=== PATIENT | female | born 1990 | race Caucasian/White ===

== ENCOUNTER 2023-10-18 11:50 | Emergency (ER) | payer OTHER ==
[2023-10-18 12:05] VITALS: BP 134/86; PULSE 80; RESP 17; TEMP 98.5; BMI 36.6
[2023-10-18 13:05] LABS: BASO % 1.1 % (0-2.0); EOS % 2.3 % (0-4.5); HEMATOCRIT 43.9 % (32.4-45.2); HEMOGLOBIN 14.5 GM/dL (10.7-15.3); LYMPH % 20.5 % (8-40); MCH 30.1 pg (25.7-33.7); MCHC 33.1 g/dl (32.0-36.0); MEAN CELL VOLUME 91.1 fl (80-96); MONO % 5.5 % (3.8-10.2); NEUT % 70.6 % (42.8-82.8); PLATELET COUNT 450 10^3/uL (134-434); RBC 4.82 M/mm3 (3.60-5.2); RDW 12.5 % (11.6-15.6); WHITE BLOOD COUNT 11.4 K/mm3 (4.0-10.0)
[2023-10-18 13:07] LABS: EPI CELLS >36 /uL (0-25.1); HYALINE CASTS 0 /uL (0-3.1); URINE APPEARANCE CLOUDY; URINE BACTERIA 417 /uL (0-1359); URINE BILIRUBIN NEGATIVE (NEGATIVE); URINE COLOR ORANGE; URINE GLUCOSE (UA) NEGATIVE (NEGATIVE); URINE KETONE NEGATIVE (NEGATIVE); URINE LEUK ESTERASE 1+ (NEGATIVE); URINE NITRITE NEGATIVE (NEGATIVE); URINE PROTEIN 1+ (NEGATIVE); URINE RBC 2223 /uL (0-23.9); URINE UROBILINOGEN 0.2 mg/dL (0.2-1.0); URINE WBC 124 /uL (0-25.8)
[2023-10-18 13:29] LABS: CHLORIDE 108 mmol/L (98-107); POTASSIUM 4.6 mmol/L (3.5-5.1); SODIUM 138 mmol/L (136-145)
[2023-10-18 13:33] LABS: ALBUMIN 3.5 g/dl (3.4-5.0); ANION GAP 4 mmol/L (4-13); CO2 26 mmol/L (21-32); GLUCOSE,RANDOM 104 mg/dL (74-106)
[2023-10-18 13:36] LABS: CREATININE 0.6 mg/dL (0.55-1.3); SGOT/AST 28 U/L (15-37); SGPT/ALT 43 U/L (13-61)
[2023-10-18 13:38] LABS: BILIRUBIN,TOTAL 0.5 mg/dL (0.2-1); TOT PROT 7.4 g/dl (6.4-8.2)
[2023-10-18 13:39] LABS: ALK PHOS 56 U/L (45-117)
== END 2023-10-18 14:41 | disposition home or self-care (01) ==
LOC: JER 11:50
DX: O20.9 Hemorrhage in early pregnancy, unspecified (principal); O26.899 Other specified pregnancy related conditions, unspecified trimester; R10.30 Lower abdominal pain, unspecified
CPT/HCPCS: 36415; 80053; 81003; 84702; 85025; 86850; 86900; 86901; 87086; 99283-25

== ENCOUNTER 2025-01-06 01:49 | Emergency (ER) | payer OTHER ==
[2025-01-06 01:56] VITALS: BP 126/84; PULSE 84; RESP 17; TEMP 97.8; BMI 38.7
== END 2025-01-06 02:12 | disposition left against medical advice (07) ==
LOC: JER 01:49
DX: Z53.21 Procedure and treatment not carried out due to patient leaving prior to being seen by health care provider (principal)
CPT/HCPCS: 99281-25

== ENCOUNTER 2025-01-10 10:54 | Inpatient (IN) | payer OTHER ==
[2025-01-10 12:10] LABS: ABSOLUTE IMMATURE GRANULOCYTES 0.08 x10^3/uL (0.0-0.031); BASOPHILS # 0.06 x10^3/uL (0.01-0.08); EOSINOPHIL % 6.9 % (0.7-5.8); EOSINOPHILS # 1.14 x10^3/uL (0.04-0.36); HEMATOCRIT 45.7 % (34.1-44.9); HEMOGLOBIN 14.9 g/dL (11.2-15.7); MCHC 32.6 g/dl (32.2-35.5); MEAN PLT VOLUME 9.4 fl (9.4-12.3); MONOCYTE # 1.06 x10^3/uL (0.24-0.86); MONOCYTE % 6.4 % (4.7-12.5); PLATELET COUNT 478 x10^3/uL (182-369); RDW 12.2 % (12.1-16.8)
[2025-01-10] MEDS ORDERED: KETOROLAC TROMETHAMINE 15 MG/ML VIAL ONE ×2 (12:17→14:58)
[2025-01-10] MEDS: KETOROLAC TROMETHAMINE 15 MG/ML VIAL IVPUSH ONE (12:26)
[2025-01-10] MEDS: SODIUM CHLORIDE 0.9% 500 ML INFUS.BAG IV ONE (12:26)
[2025-01-10 12:36] LABS: POTASSIUM 3.6 mmol/L (3.5-5.1)
[2025-01-10 12:38] LABS: ALBUMIN 3.8 g/dl (3.4-5.0); BLOOD UREA NITROGEN 7.3 mg/dL (7-18); CALCIUM 9.5 mg/dL (8.5-10.1)
[2025-01-10 12:42] LABS: CREATININE 0.9 mg/dL (0.55-1.3)
[2025-01-10 12:43] LABS: BILIRUBIN,TOTAL 0.9 mg/dL (0.2-1); TOT PROT 7.8 g/dl (6.4-8.2)
[2025-01-10] MEDS: VANCOMYCIN HCL 1,500 MG in DEXTROSE 5%-WATER - 500 ML IVPB ONE (13:19)
[2025-01-10] MEDS: VANCOMYCIN HCL IN 5 % DEXTROSE 1,500 MG/300 ML BAG IVPB ONE (13:19)
[2025-01-10 13:24] LABS: HIV INTERPRETATION NEGATIVE (NEGATIVE)
[2025-01-10 13:25] LABS: HCV DIAGNOSTIC IN-HOUSE W/RFLX NON-REACTIVE (NONREACTIVE)
[2025-01-10] MEDS: KETOROLAC TROMETHAMINE 15 MG/ML VIAL IVPUSH PRN (15:04)
[2025-01-10 16:24] VITALS: BMI 33.3
[2025-01-11] MEDS: VANCOMYCIN 1 GM PREMIX (F) 1,000 MG/200 ML BAG IVPB SCH (00:08)
[2025-01-11] MEDS: SODIUM CHLORIDE 0.9% 500 ML INFUS.BAG IV ONE (06:08)
[2025-01-11 07:22] LABS: HEMATOCRIT 37.6 % (34.1-44.9); HEMOGLOBIN 12.3 g/dL (11.2-15.7); MCHC 32.7 g/dl (32.2-35.5); MEAN CELL VOLUME 93.3 fl (79.4-94.8); MEAN PLT VOLUME 9.5 fl (9.4-12.3); PLATELET COUNT 379 x10^3/uL (182-369); RDW 12.2 % (12.1-16.8)
[2025-01-11 07:42] LABS: POTASSIUM 3.8 mmol/L (3.5-5.1)
[2025-01-11 07:57] LABS: BLOOD UREA NITROGEN 8.5 mg/dL (7-18); CALCIUM 8.3 mg/dL (8.5-10.1); MAGNESIUM 1.8 mg/dL (1.8-2.4)
[2025-01-11 08:00] LABS: CREATININE 0.6 mg/dL (0.55-1.3)
[2025-01-11 08:01] LABS: PHOSPHOROUS 3.1 mg/dL (2.5-4.9)
[2025-01-11] MEDS ORDERED: ACETAMINOPHEN 325 MG TABLET (FP) PO PRN (10:51)
[2025-01-11] MEDS: ENOXAPARIN NA (PORCINE) 40 MG/0.4 ML DISP.SYRIN SQ SCH (11:24)
[2025-01-11] MEDS: VANCOMYCIN 1 GM PREMIX (F) 1 GM/200 ML BAG IVPB SCH (14:16)
[2025-01-12] MEDS: ALBUTEROL SO4 2.5/IPRATROPIUM 0.5 INH SOL 3 ML VIAL.NEB. NEB ONE (04:00)
[2025-01-12 08:08] LABS: HEMATOCRIT 39.7 % (34.1-44.9); HEMOGLOBIN 12.9 g/dL (11.2-15.7); MCHC 32.5 g/dl (32.2-35.5); MEAN PLT VOLUME 9.5 fl (9.4-12.3); PLATELET COUNT 392 x10^3/uL (182-369); RDW 12.3 % (12.1-16.8)
[2025-01-12 08:16] LABS: INR 1.19 (0.83-1.09); PROTHROMBIN TIME (PATIENT) 13.1 SEC (9.7-13.0)
[2025-01-12 08:28] LABS: POTASSIUM 3.8 mmol/L (3.5-5.1)
[2025-01-12 08:30] LABS: CALCIUM 8.5 mg/dL (8.5-10.1)
[2025-01-12 08:31] LABS: BLOOD UREA NITROGEN 6.3 mg/dL (7-18)
[2025-01-12 08:34] LABS: CREATININE 0.7 mg/dL (0.55-1.3)
[2025-01-12 08:36] LABS: BILIRUBIN,TOTAL 0.4 mg/dL (0.2-1); TOT PROT 6.2 g/dl (6.4-8.2)
[2025-01-12] MEDS: diphenhydrAMINE HCL 25 MG CAPSULE (FP) PO ONE (21:38)
[2025-01-13 07:41] LABS: ABSOLUTE IMMATURE GRANULOCYTES 0.06 x10^3/uL (0.0-0.031); BASOPHILS # 0.09 x10^3/uL (0.01-0.08); EOSINOPHILS # 1.59 x10^3/uL (0.04-0.36); HEMATOCRIT 41.9 % (34.1-44.9); HEMOGLOBIN 13.9 g/dL (11.2-15.7); MCHC 33.2 g/dl (32.2-35.5); MEAN CELL VOLUME 91.9 fl (79.4-94.8); MEAN PLT VOLUME 9.8 fl (9.4-12.3); MONOCYTE # 0.99 x10^3/uL (0.24-0.86); MONOCYTE % 8.1 % (4.7-12.5); PLATELET COUNT 460 x10^3/uL (182-369); RDW 12.2 % (12.1-16.8)
[2025-01-13 08:13] LABS: POTASSIUM 3.9 mmol/L (3.5-5.1)
[2025-01-13 08:32] LABS: ALBUMIN 3.1 g/dl (3.4-5.0); BLOOD UREA NITROGEN 7.1 mg/dL (7-18); CALCIUM 8.5 mg/dL (8.5-10.1); MAGNESIUM 1.7 mg/dL (1.8-2.4)
[2025-01-13 08:36] LABS: CREATININE 0.6 mg/dL (0.55-1.3)
[2025-01-13 08:40] LABS: TOT PROT 6.2 g/dl (6.4-8.2)
[2025-01-13] MEDS: VANCOMYCIN 1,000 MG in DEXTROSE 5%-WATER - 250 ML IVPB SCH (08:55)
[2025-01-14 08:10] LABS: HEMATOCRIT 41.5 % (34.1-44.9); HEMOGLOBIN 13.6 g/dL (11.2-15.7); MCHC 32.8 g/dl (32.2-35.5); MEAN CELL VOLUME 92.4 fl (79.4-94.8); MEAN PLT VOLUME 9.6 fl (9.4-12.3); PLATELET COUNT 413 x10^3/uL (182-369); RDW 12.3 % (12.1-16.8)
[2025-01-14 08:19] LABS: CALCIUM 8.7 mg/dL (8.5-10.1); MAGNESIUM 1.8 mg/dL (1.8-2.4)
[2025-01-14 08:22] LABS: BILIRUBIN,TOTAL 0.4 mg/dL (0.2-1)
[2025-01-14 08:23] LABS: CREATININE 0.7 mg/dL (0.55-1.3); TOT PROT 6.3 g/dl (6.4-8.2)
[2025-01-14 09:34] VITALS: BP 116/83; PULSE 86; RESP 18; TEMP 97.8
== END 2025-01-14 13:11 | disposition home or self-care (01) | DRG 383 ==
LOC: JERFT 10:54 → JER 10:54 → JERBED 13:36 → J7W 16:13 → OBSVTOIN 16:32
PROVIDERS: ADMIT Internal Medicine
PROC: 0Y9B0ZZ Drainage of Left Lower Extremity, Open Approach (ICD-10-PCS; principal; 2025-01-12)
DX: L02.414 Cutaneous abscess of left upper limb (principal); L02.416 Cutaneous abscess of left lower limb; L03.114 Cellulitis of left upper limb; D72.829 Elevated white blood cell count, unspecified; D75.839 Thrombocytosis, unspecified
CPT/HCPCS: 0241U-QW; 36415; 71045-TC-FY; 76882-TC-RT-FY; 80048; 80053; 83735; 84100; 84703; 85025; 85027; 85610; 86803; 86850; 86900; 86901; 87040; 87070; 87186; 87205; 87389; 93005; 93010; 94640; 99285-25; G0378; G0480